=== PATIENT | female | born 1995 | race Asian ===

== ENCOUNTER 2022-11-26 15:26 | Emergency (ER) | payer MEDICAID ==
[~2022-11-26] VITALS: Ht 154.9 cm; Wt 100.0 kg
[2022-11-26] MEDS ORDERED: IBUPROFEN 600 MG TABLET PO ONE (18:00)
[2022-11-26 18:30] VITALS: BP 132/97
== END 2022-11-26 18:55 | disposition home or self-care (01) ==
LOC: EMS 15:44
DX: S09.90XA Unspecified injury of head, initial encounter (principal); E11.9 Type 2 diabetes mellitus without complications; Z90.49 Acquired absence of other specified parts of digestive tract; Z88.8 Allergy status to other drugs, medicaments and biological substances; X58.XXXA Exposure to other specified factors, initial encounter; Y93.89 Activity, other specified; Y92.89 Other specified places as the place of occurrence of the external cause; Y99.8 Other external cause status
CPT/HCPCS: 70450; 82962; 99284

== ENCOUNTER 2022-12-01 09:24 | Emergency (ER) | payer MEDICAID ==
[~2022-12-01] VITALS: Ht 154.9 cm; Wt 100.0 kg
[2022-12-01] MEDS ORDERED: METF-1211 PO (10:01)
[2022-12-01 11:00] VITALS: BP 136/78
== END 2022-12-01 11:16 | disposition home or self-care (01) ==
LOC: EMS 09:24
DX: S93.402A Sprain of unspecified ligament of left ankle, initial encounter (principal); E11.9 Type 2 diabetes mellitus without complications; K80.20 Calculus of gallbladder without cholecystitis without obstruction; R01.1 Cardiac murmur, unspecified; H91.92 Unspecified hearing loss, left ear; Z90.49 Acquired absence of other specified parts of digestive tract; Z88.1 Allergy status to other antibiotic agents; X58.XXXA Exposure to other specified factors, initial encounter; Y93.89 Activity, other specified; Y92.89 Other specified places as the place of occurrence of the external cause; Y99.8 Other external cause status
CPT/HCPCS: 82962; 99283